=== PATIENT | male | born 1960 | race Caucasian/White ===

== ENCOUNTER 2024-11-24 10:54 | Emergency (ER) | payer MEDICAID, OTHER ==
[~2024-11-24] VITALS: Ht 182.9 cm; Wt 70.7 kg
[2024-11-24 11:26] VITALS: BP 120/74; PULSE 99; RESP 18; TEMP 98.5; O2SAT 97
--- NOTE | 2024-11-24 11:34 | ED.PDOC ---
Eye-HPI HPI Comments A 64 YEAR OLD MALE PRESENTS TO THE ED WITH COMPLAINT OF RIGHT-SIDED FACIAL SWELLING. PATIENT STATES HE HAS BEEN EXPERIENCING RIGHT-SIDED FACIAL SWELLING FOR THE PAST 3 DAYS WITH WORSENING SWELLING THAT STARTED TODAY. PATIENT NOTES HE WAS SENT TO THIS ED BY AN URGENT CARE FOR FURTHER EVALUATION. PATIENT DENIES FEVER, CHILLS, SHORTNESS OF BREATH, CHEST PAIN, ABDOMINAL PAIN, NAUSEA, VOMITING, HEADACHE, OR OTHER COMPLAINTS. NO OTHER SYMPTOMS OR MODIFYING FACTORS AT THIS TIME. PATIENT IS ALERT, ORIENTED X 4, AND HAS STEADY GAIT. Chief Complaint: Face pain Time Seen by MD: 11:07 Primary Care Provider: UNKNOWN Reviewed Notes: Nurses Notes, Medications, Allergies Allergies: Coded Allergies: NO KNOWN ALLERGIES (Unverified , 11/24/24) Home Meds Active Scripts Clindamycin Hcl (Clindamycin Hcl) 300 Mg Cap, 300 MG PO QID, #40 CAP Prov:ANGELITO ELLIS 11/24/24 Information Source: Patient Mode of Arrival: Ambulatory Timing: Days Duration: Days Prehospital treatment: None Quality: Pain, Red Lids: Normal Conjunctiva: Normal Cornea: Normal EOM: Normal Fundus: Normal Slit lamp exam: Normal Anterior chamber: Normal Mouth Location: Right, Lower, Gums Mouth: Right, Lower, Premolar, Molar, Tender, Carious Nose: Normal Sinuses: Normal Oropharynx: Normal Onset: Spontaneous Throat Exposed to: None History of: None Last Tetanus: Unknown Modifying factors: Nothing Associated signs and symptoms: Tooth Pain Past Medical History PAST MEDICAL HISTORY: Denies Surgical History: Denies all surgeries Family History Family History: Reviewed,noncontributory to illness Social History Smoker: Non-Smoker Alcohol: Denies ETOH Use Drugs: Denies Drug Use Lives In: Home Constitutional: denies: chills, diaphoresis, fatigue, fever, malaise, sweats, weakness, others EENTM: reports: others (RIGHT-SIDED FACIAL SWELING AND GUM SWELLING); denies: blurred vision, double vision, ear bleeding, ear discharge, ear drainage, ear pain, ear ringing, eye pain, eye redness, hearing loss, mouth pain, mouth swelling, nasal discharge, nose bleeding, nose congestion, nose pain, photophobia, tearing, throat pain, throat swelling, voice changes Respiratory: denies: cough, hemoptysis, orthopnea, SOB at rest, shortness of breath, SOB with excertion, stridor, wheezing, others Cardiovascular: denies: chest pain, dizzy spells, diaphoresis, Dyspnea on exertion, edema, irregular heart beat, left arm pain, lightheadedness, palpitations, PND, syncope, others Gastrointestinal: denies: abdomen distended, abdominal pain, blood streaked bowels, constipated, diarrhea, dysphagia, difficulty swallowing, hematemesis, melena, nausea, poor appetite, poor fluid intake, rectal bleeding, rectal pain, vomiting, others Genitourinary: denies: burning, dysuria, flank pain, frequency, hematuria, incontinence, penile discharge, penile sore, pain, testicle pain, testicle swelling, urgency, others Neurological: denies: dizziness, fainting, headache, left sided numbness, left sided weakness, numbness, paresthesia, pre-existing deficit, right sided numbness, right sided weakness, seizure, speech problems, tingling, tremors, weakness, others Musculoskeletal: denies: back pain, gout, joint pain, joint swelling, muscle pain, muscle stiffness, neck pain, others Integumetry: denies: bruises, change in color, change in hair/nails, dryness, laceration, lesions, lumps, rash, wounds, others Allergic/Immunocompromised: denies: Difficulty Healing, Frequent Infections, Hives, Itching, others Hematologic/Lymphatic: denies: anemia, blood clots, easy bleeding, easy bruising, swollen glands, others Endocrine: denies: excessive hunger, excessive sweating, excessive thirst, excessive urination, flushing, intolerance to cold, intolerance to heat, unexplained weight gain, unexplained weight loss, others Psychiatric: denies: anxiety, bipolar disorder, depression, hopeless, panic disorder, schizophrenia, sleepless, suicidal, others All Other Systems: Reviewed and Negative Physical Exam General Appearance: No Apparent Distress, Normal HEENT: Normal ENT Inspection, PERRL/EOMI, Pharynx Normal, TMs Normal, Other (TENDERNESS, HARDNESS AND SWELLING ON RIGHT JAW REGION, NO SKIN ERYTHEMA AND OPEN WOUND. ERYTHEMA AND SWELLING ON RIGHT LOWER GUM AROUND TOOTH, DENTAL INFECTION, NO PUS DRAINAGE. ) Neck: Full Range of Motion, Non-Tender, Normal, Normal Inspection Respiratory: Chest Non-Tender, Lungs Clear, No Accessory Muscle Use, No Respiratory Distress, Normal Breath Sounds Cardiovascular: No Edema, No JVD, No Murmur, No Gallop, Normal Peripheral Pulses, Regular Rate/Rhythm Breast Exam: Deferred Gastrointestinal: No Organomegaly, Non Tender, No Pulsatile Mass, Normal Bowel Sounds, Soft Genitalia: Deferred Pelvic: Deferred Rectal: Deferred Extremities: No calf tenderness, Normal capillary refill, Normal inspection, Normal range of motion, Non-tender, No pedal edema Musculoskeletal : Apperance: Normal Neurologic: Alert, head of art II-XII nml as Tested, No Motor Deficits, Normal Affect, Normal Mood, No Sensory Deficits Cerebellar Function: Normal Reflexes: Normal Skin: Dry, Normal Color, Warm Peripheral Pulses: 2+ carotid (R), 2+ carotid (L) Lymphatic: No Adenopathy Was a procedure done? Was a procedure done?: No EENT DIFF Eye: N/A Ear: Otitis Externa, Otitis Media, Dental, N/A Nose: N/A Mouth: Other (DENTAL CARIES, DENTAL INFECTION, DENTAL ABSCESS) Sore Throat: N/A X-Ray, Labs, Meds, VS Vital Signs Date Time Temp Pulse Resp B/P (MAP) Pulse Ox O2 Delivery O2 Flow Rate FiO2 11/24/24 11:26 98.5 99 18 120/74 (89) 97 98.5 11/24/24 11:26 99 18 97 Room Air 11/24/24 11:02 98.5 99 18 120/74 (89) 97 Lab Test 11/24/24 12:00 Range/Units White Blood Count 14.6 H 4.4-10.8 10^3/uL Red Blood Count 4.85 4.5-5.90 10^6/uL Hemoglobin 15.1 13.5-17.5 g/dL Hematocrit 44.1 41.0-53.0 % Mean Corpuscular Volume 90.8 80.0-100.0 fL Mean Corpuscular Hemoglobin 31.2 28.0-32.0 pg Mean Corpuscular Hemoglobin Concent 34.3 32.0-36.0 g/dL Red Cell Distribution Width 13.1 11.8-14.3 % Platelet Count 344 140-450 10^3/uL Mean Platelet Volume 6.6 L 6.9-10.8 fL Neutrophils (%) (Auto) 80.7 H 37.0-80.0 % Lymphocytes (%) (Auto) 7.5 L 10.0-50.0 % Monocytes (%) (Auto) 11.5 0.0-12.0 % Eosinophils (%) (Auto) 0.2 0.0-7.0 % Basophils (%) (Auto) 0.1 0.0-2.0 % Neutrophils # (Auto) 11.8 H 1.6-8.6 10 ^3/uL Lymphocytes # (Auto) 1.1 0.4-5.4 10 ^3/uL Monocytes # (Auto) 1.7 H 0-1.3 10 ^3/uL Eosinophils # (Auto) 0 0-0.8 10 ^3/uL Basophils # (Auto) 0 0-0.2 10 ^3/uL Nucleated Red Blood Cells 0.4 % Sodium Level 136 136-145 mmol/L Potassium Level 4.2 3.5-5.1 mmol/L Chloride Level 102 98-107 mmol/L Carbon Dioxide Level 26 20-31 mmol/L Anion Gap 8 5-15 Blood Urea Nitrogen 11 9-23 mg/dL Creatinine 0.99 0.700-1.30 mg/dL Glomerular Filtration Rate Calc 86 >90 mL/min BUN/Creatinine Ratio 11.1 10.0-20.0 Serum Glucose 108 H 74-106 mg/dL Lactic Acid Level 1.0 0.4-2.0 mmol/L Calcium Level 9.9 8.7-10.4 mg/dL Current Medications Medications (Trade) Dose Ordered Sig/Joni Route Start Time Stop Time Status Last Admin Ceftriaxone Sodium 50 ml @ 100 mls/hr ONCE ONCE IV 11/24/24 12:45 11/24/24 13:14 DC 11/24/24 13:03 Clindamycin Phosphate 50 ml @ 50 mls/hr ONCE ONCE IV 11/24/24 12:45 11/24/24 13:44 11/24/24 13:14 HISTORY: RIGHT SIDE JAW PAIN AND SWELLING, NO INJURY, GUM SWELLING. TECHNIQUE: Nonenhanced axial images through the facial bones with coronal and sagittal MPR. Radiation Dose Information: CT Dose: CTDI volume is 56.57 mGy. Dose-length product is 1055.09 mGy*cm COMPARISON: None FINDINGS: Dental: Scattered dental amalgam and dental decay. There is periapical lucency involving multiple maxillary and mandibular teeth. There is associated erosion of the inner mandibular cortex associated with a right posterior molar (series 2, image 40). Mandible: No acute fracture. Maxilla: No acute fracture. Zygomatic arches: Unremarkable Nasal bone: Unremarkable Orbits: Unremarkable Sinuses: Trace mucosal thickening in the ethmoid sinuses. Hypoplastic frontal sinuses. Facial soft tissues: Subcutaneous fat stranding overlying the right jaw. Associated thickening of the underlying platysma. Poorly defined soft tissue density in the right submandibular region that measures approximately 3.4 x 3.4 cm. The right submandibular gland is not easily separable from this poorly defined soft tissue density. There is prominence right submandibular lymph nodes. There is leftward shift of the oropharynx. Several small tonsilliths are seen. IMPRESSION: In the right submandibular space there is poorly defined soft tissue density and significant surrounding inflammation. Finding may represent odontogenic infection associated with periodontal disease at a right posterior mandibular molar that erodes through the lingual cortex. The soft tissue density may represent phlegmonous changes although abscess can not be excluded without intravenous contrast. An underlying solid lesion is less likely given the significant inflammation. Sialadenitis of the right submandibular gland is considered less likely based on the overall appearance. Recommend repeat CT with intravenous contrast. Leftward shift of the oropharynx. No significant airway narrowing. Prominence of right submandibular lymph nodes is nonspecific but may be reactive. Radiation optimization: All CT scans at this facility use at least one of these dose optimization techniques: automated exposure control mA and/or kV adjustment per patient size (includes targeted exams where dose is matched to clinical indication) or iterative reconstruction. ATED BY: CHILO GAO DO DICTATED DATE/TIME: 11/24/24 1231 SIGNED BY: CHILO GAO DO SIGNED DATE/TIME: 11/24/24 1231 CC: X-Ray, Labs, Meds, VS Comment EXTERNAL MEDICAL RECORDS REVIEWED: [NONE] INDEPENDENT HISTORIANS: [NONE] SOCIAL DETERMINANTS OF HEALTH: [NONE] LABS ORDERED: CBC, BMP, LACTIC ACID W/ REFLEX REVIEWED AND INTERPRETED RESULTS: WBC 14.6 IMAGING ORDERED: CT MAXFACE TREATMENTS ORDERED: ROCEPHIN 1G IV, CLINDAMYCIN 600MG IV PROCEDURES PERFORMED: NONE CRITICAL CARE TIME: NONE I HAVE DISCUSSED THE PATIENT WITH THE ATTENDING PHYSICIAN DR. DANIELLE AND HE AGREES WITH THE PATIENT'S PLAN OF CARE. PATIENT DECLINED TO HAVE CT SCAN WITH IV CONTRAST FOR FURTHER EVALUATION DONE AT THIS TIME AND WOULD PREFER IV ANTIBIOTIC TREATMENT HERE IN THE ED INSTEAD. PATIENT DECIDED TO SIGN OUT AMA AFTER IV ANTIBIOTIC TREATMENT. PATIENT WAS INFO RMED OF THE RISKS AND CONSEQUENCES ASSOCIATED WITH SIGNING OUT AMA AND HE STILL INSISTED ON SIGNING OUT AMA. PATIENT SIGNED OUT AMA. Images Reviewed?: Images reviewed and evaluated by me Time of 1ST Reevaluation: 14:00 Reevaluation 1ST: Unchanged Patient Education/Counseling: Diagnosis, Treatment Family Education/Counseling: Diagnosis, Treatment Departure 1 Departure Time of Disposition: 14:00 Impression: Primary Impression: Swelling of right side of face Additional Impression: Infected dental caries Disposition: LEFT AGAINST MEDICAL ADVICE Condition: Fair e-Prescriptions Clindamycin Hcl (Clindamycin Hcl) 300 Mg Cap 300 MG PO QID, #40 CAP Prov: ANGELITO ELLIS 11/24/24 Critical Care Note Critical Care Time?: No Stability Stability form required: No I personally scribed for ANGELITO ELLIS ([email or web address]) on 11/24/24 at 11:34. Electronically submitted by Gaetano Aponte ([employer]). I personally scribed for ANGELITO ELLIS ([email or web address]) on 11/24/24 at 12:52. Electronically submitted by Gaetano Aponte ([email or web address]). ANGELITO ELLIS Nov 24, 2024 11:34
[2024-11-24 12:24] LABS: Basophils # (auto) 0 10 ^3/uL (0-0.2); Basophils % (auto) 0.1 % (0.0-2.0); Eosinophils # (auto) 0 10 ^3/uL (0-0.8); Eosinophils % (auto) 0.2 % (0.0-7.0); Hematocrit 44.1 % (41.0-53.0); Hemoglobin 15.1 g/dL (13.5-17.5); Lymphocytes # (auto) 1.1 10 ^3/uL (0.4-5.4); Lymphocytes % (auto) 7.5 % (10.0-50.0); Mean Corpuscular Hemoglobin 31.2 pg (28.0-32.0); Mean Corpuscular Hgb Conc. 34.3 g/dL (32.0-36.0); Mean Corpuscular Volume 90.8 fL (80.0-100.0); Monocytes # (auto) 1.7 10 ^3/uL (0-1.3); Monocytes % (auto) 11.5 % (0.0-12.0); Neutrophils # (auto) 11.8 10 ^3/uL (1.6-8.6); Neutrophils % (auto) 80.7 % (37.0-80.0); Nucleated Red Blood Cells % 0.4 %; Platelet Count (auto) 344 10^3/uL (140-450); Red Blood Cells 4.85 10^6/uL (4.5-5.90); Red Cell Distribution Width 13.1 % (11.8-14.3); White Blood Cell 14.6 10^3/uL (4.4-10.8)
--- NOTE | 2024-11-24 12:33 | DVH ---
HISTORY: RIGHT SIDE JAW PAIN AND SWELLING, NO INJURY, GUM SWELLING. TECHNIQUE: Nonenhanced axial images through the facial bones with coronal and sagittal MPR. Radiation Dose Information: CT Dose: CTDI volume is 56.57 mGy. Dose-length product is 1055.09 mGy*cm COMPARISON: None FINDINGS: Dental: Scattered dental amalgam and dental decay. There is periapical lucency involving multiple ma xillary and mandibular teeth. There is associated erosion of the inner mandibular cortex associated w ith a right posterior molar (series 2, image 40). Mandible: No acute fracture. Maxilla: No acute fracture. Zygomatic arches: Unremarkable Nasal bone: Unremarkable Orbits: Unremarkable Sinuses: Trace mucosal thickening in the ethmoid sinuses. Hypoplastic frontal sinuses. Facial soft tissues: Subcutaneous fat stranding overlying the right jaw. Associated thickening of th e underlying platysma. Poorly defined soft tissue density in the right submandibular region that sky ures approximately 3.4 x 3.4 cm. The right submandibular gland is not easily separable from this poor ly defined soft tissue density. There is prominence right submandibular lymph nodes. There is leftwar d shift of the oropharynx. Several small tonsilliths are seen. IMPRESSION: In the right submandibular space there is poorly defined soft tissue density and significant surround ing inflammation. Finding may represent odontogenic infection associated with periodontal disease at a right posterior mandibular molar that erodes through the lingual cortex. The soft tissue density m ay represent phlegmonous changes although abscess can not be excluded without intravenous contrast. A n underlying solid lesion is less likely given the significant inflammation. Sialadenitis of the righ t submandibular gland is considered less likely based on the overall appearance. Recommend repeat CT with intravenous contrast. Leftward shift of the oropharynx. No significant airway narrowing. Prominence of right submandibular lymph nodes is nonspecific but may be reactive. Radiation optimization: All CT scans at this facility use at least one of these dose optimization elias hniques: automated exposure control mA and/or kV adjustment per patient size (includes targeted exam s where dose is matched to clinical indication) or iterative reconstruction.
[2024-11-24 12:58] LABS: Chloride 102 mmol/L (98-107); Potassium 4.2 mmol/L (3.5-5.1); Sodium 136 mmol/L (136-145)
[2024-11-24 12:59] LABS: Anion Gap 8 (5-15); Calcium 9.9 mg/dL (8.7-10.4); Carbon Dioxide 26 mmol/L (20-31)
[2024-11-24] MEDS: cefTRIAXone 1GM/50ML D5W 50 ML IV ONE (13:03)
[2024-11-24 13:04] LABS: BUN/Creatinine Ratio 11.1 (10.0-20.0); Blood Urea Nitrogen 11 mg/dL (9-23)
[2024-11-24] MEDS ORDERED: CLIN1CAP70 PO (13:08)
[2024-11-24 13:11] LABS: Glucose 108 mg/dL (74-106)
[2024-11-24] MEDS: CLINDAMYCIN 900MG IV 50 ML IV ONE (13:14)
== END 2024-11-24 13:43 | disposition left against medical advice (07) ==
LOC: ER 10:54
DX: K02.9 Dental caries, unspecified (principal); R22.0 Localized swelling, mass and lump, head
CPT/HCPCS: 36415; 70486; 80048; 83605; 85025; 96365; 96368; 99285; J0696; J3490